=== PATIENT | male | born 1965 | race Caucasian/White ===

== ENCOUNTER 2021-03-25 12:31 | Outpatient (CLI) | payer OTHER, SELFPAY ==
--- NOTE | ~2021-03-25 | XR_ITS ---
EXAMINATION: XR knee RT min 4V DATE: 03/25/2021 12:53 INDICATION: Medial knee pain TECHNIQUE: Four views of the right knee were obtained. COMPARISON: 03/02/2012 FINDINGS: Alignment is normal. No fracture or osteochondral lesion. There is tricompartmental osteoar thritis, moderate to severe in the medial compartment. A small joint effusion is present. There is ca lcified atherosclerosis IMPRESSION: 1. No acute osseous abnormality. Reviewed, dictated and finalized at location [facility]
== END 2021-03-25 12:32 | disposition home or self-care (01) ==
PROVIDERS: PCP Family Medicine; Visit Provider Family Medicine
DX: M25.569 Pain in unspecified knee (principal)
CPT/HCPCS: 73564

== ENCOUNTER 2022-07-03 00:55 | Day surgery (SDC) | payer OTHER, SELFPAY ==
[2022-06-25 15:32] VITALS: BMI 34.7
--- NOTE | 2022-06-25 15:37 | PC.NURSE ---
Report to the Outpatient Waiting Room, entrance under the green pavilion located off [facility], at time 1130 on date 07/03/22. Planned Procedure Time: 1330. Time changes happen often and if your time is changed the preop area will call you the afternoon before. - You and your visitor will be asked to self-screen and do not enter if you have any COVID symptoms. - A mask is optional within the hospital at this time. Patients may have clear liquids (water, carbonated beverages, clear teas, apple juice) until 3 hours prior to surgery with a maximum of 20 ounces. - No food from midnight until time of surgery Take the following medications with a SIP of water the morning of surgery: TYLENOL IF NEEDED DO NOT STOP ANY OF YOUR OTHER PRESCRIPTION MEDICATIONS PRIOR TO SURGERY?EXCEPT THE FOLLOWING Medications to discontinue per physician: N/A Date to take last dose: N/A Please no make-up, nail korean, hairspray, perfume, deodorant, or body powder the day of surgery. No jewelry (including any body piercings) or valuables the day of surgery, leave them at home. Please take a shower or bath the night before, or the morning of, surgery with an antibacterial soap. Wear comfortable, loose fitting clothing. - Jewelry must be removed prior to entering the operating room. Rings and piercings that are not removed may be cut off. - The hospital will not accept responsibility for valuables. - Please leave all valuables, including medications, at home the day of surgery. If you are going home after surgery, a licensed certified driver examiner must drive you home. - NO public transportation without another adult if you receive anesthesia. - We recommend that an adult stay with you for 24 hours following discharge. - We also recommend that you do not drive, make important decision, drink alcoholic beverages, or take any drugs that were not prescribed by your health care provider for at least 24 hours after your discharge time. Follow any additional instructions given to you from your surgeon. If you or anyone in your household have experienced Covid symptoms in the past week, please notify your surgeon or the nurse liaison at the phone number below for possible testing. Telephone instructions given to PT - KWADWO SIERRA and asked if any additional questions and then verbalized understanding. Patient advised to call surgeon office or pre surgery nurse liaison [phone] if any additional questions.
[2022-07-03] VITALS (8 sets, daily range): BP systolic 106–157; BP diastolic 59–101; PULSE 57–72; RESP 15–20; TEMP 36.6–37; O2SAT 98–100
--- NOTE | 2022-07-03 12:22 | WPDHPUPDATE1 ---
History and Physical Update Update Date/Time: 07/03/22 12:22 History and Physical has been reviewed, including an updated exam of the patient. There are NO changes in the patient's condition. Risks, benefits, and alternatives have been discussed and questions answered. Patient agrees to proceed with procedure.
[2022-07-03] MEDS: LACTATED RINGERS 1,000 ML 30 ML IV CONT (12:30)
--- NOTE | 2022-07-03 13:37 | WPDANESEPPF ---
Anes - Initial Pre Proc Eval Procedure: Operation Date: 07/03/22 13:30 Proposed Procedures p Excision Right Posterior Neck Mass - Hakeem Sebastian DO Date/Time: 07/03/22 13:37 Surgeon: Hakeem Sebastian DO Pre Op Diagnosis: 7 cm Posterior Neck Mass Patient Data Age: 57 Gender: M Height: 1.63 m Weight: 89.3 kg Last Vital Signs Temp 36.6 C 07/03/22 12:44 Pulse 64 07/03/22 12:44 Resp 16 07/03/22 12:44 BP 155/86 H 07/03/22 12:44 Pulse Ox 99 07/03/22 12:44 O2 Del Method Room Air 07/03/22 12:44 Allergies Allergy/AdvReac Type Severity Reaction Status Date / Time No Known Allergies Allergy Unknown Verified 07/03/22 12:00 Home Medications Medication Instructions Recorded Confirmed Type acetaminophen 500 mg tablet 500 mg PO Q6H 03/25/21 07/03/22 History tadalafil 5 mg tablet 5 mg PO DAILY #30 tabs 05/10/22 06/25/22 Rx loratadine 10 mg tablet (Claritin) 10 mg PO DAILY 06/05/22 07/03/22 History celecoxib 200 mg capsule (Celebrex) 200 mg PO BID arthritis #60 caps 06/17/22 07/03/22 Rx Patient hx anesthesia problems: none Family hx anesthesia problems: none Results Review: All pre-operative results and documents have been reviewed as part of the pre-operative evaluation. [facility] Past Medical History Medical History (Updated 07/03/22 @ 13:37 by Mason Hay MD) BMI 32.0-32.9,adult BMI 33.0-33.9,adult BMI 34.0-34.9,adult BMI greater than 30 Elevated glucose Hematuria Inflamed skin tag Lipoma of neck Obesity DYLAN on CPAP Screening for lipid disorders Screening for prostate cancer Urinary hesitancy Surgical History Surgical History Hx of tonsillectomy Social History Social History Smoking status: Never smoker Alcohol intake: never Substance use: never Substance use type: does not use Living arrangements: with family Occupation/Education: occupation 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 Informed Consent: The patient's anesthetic plan and its attendant risks and benefits were discussed with the patient/family/POA. Questions were solicited and answers provided to the satisfaction of the patient/family/POA.
[2022-07-03] MEDS: ceFAZolin 2 GM/D5W 50 ML 2 GM/50 ML BAG IVPB (14:27)
[2022-07-03] MEDS: LIDO 1%/EPINEPHRINE 1:100,000 20 ML VIAL INFILTRATE (14:58)
[2022-07-03] MEDS: BACITRACIN OINTMENT 15 GM TUBE 1 APPLIC TOPICAL (15:06)
--- NOTE | 2022-07-03 15:26 | P.OP_ITS ---
Procedure Note - Detailed Date of Procedure 07/03/22 Pre-op Diagnosis 7 cm Posterior Neck Mass Post-op Diagnosis Other (7 cm intramuscular right posterior neck mass) Procedure Performed 1. Excision 7 cm intramuscular right posterior neck mass 2. Layered closure Surgeon Hakeem Sebastian, DO Anesthesia General and Local (1% lidocaine with epinephrine) Indications This is a 57-year-old man who presented with a mass his right posterior neck. He had noticed this for couple years and it had been gradually enlarging. He was found to have a firm subcutaneous palpable mass on exam. Discussions were made with the patient about treatment options and decision was made to proceed with excision of 7 cm posterior neck mass. Findings The 7 cm posterior neck mass was excised. This appeared to be an intramuscular mass that had a gelatinous appearance. This might be a nerve sheath tumor or neuroma. The mass was completely excised and sent to the lab for pathology. The wound was then closed in layers with 2-0 Vicryl simple interrupted layers in the fascia overlying the muscle, followed by 3-0 nylon simple interrupted sutures in skin. Description of Procedure Procedure as well as risks, benefits, and alternatives were discussed with the patient. Written consent was obtained and placed in chart prior to procedure. Patient was brought back to surgical suite. He was placed supine on operating table. Time-out was done to confirm patient and procedure. He was then intubated by the anesthesia department. He was then repositioned into left lateral decubitus position. His right posterior neck region was prepped and draped in sterile fashion using chlorhexidine prep. 1% lidocaine with epinephrine was infiltrated locally around the mass. A 7 cm transverse incision was then made directly over the mass using a 15 blade scalpel. Electrocautery was used for hemostasis and for dissection through the subcutaneous tissue. The fascia overlying the superior portion of the right trapezius muscle was incised using electrocautery. The mass was encountered just deep to the fascia was carefully dissected free from the surrounding muscle and deep tissue using blunt dissection. The mass was completely freed up and removed. Hemostasis was then achieved with electrocautery. The wound bed was then inspected and there were couple other small portions of the mass that were sized further with electroca utery. The origin of the mass appeared to be tracking towards the midline. No other deep masses were identified. Wound bed was then irrigated with sterile saline. Hemostasis appeared adequate no other masses were identified. The fascia overlying the mass was approximated using 2-0 Vicryl simple interrupted sutures. The skin was then approximated using 3-0 nylon simple interrupted sutures. Bacitracin ointment was then applied followed by 4 x 4 gauze and tape. The patient was then awakened from anesthesia, extubated, and transferred to recovery. Estimated Blood Loss 10 Pathology Yes (right posterior neck mass) Complications No immediate complications Condition Stable Disposition Same day [facility] Billing Surgery - Charge Forward: Surgery Billing
== END 2022-07-03 17:17 | disposition home or self-care (01) ==
PROVIDERS: PCP Family Medicine; Visit Provider Surgery
PROC: (CPT 21554; principal; 2022-07-03 13:30)
DX: D21.0 Benign neoplasm of connective and other soft tissue of head, face and neck (principal); G47.33 Obstructive sleep apnea (adult) (pediatric); E66.9 Obesity, unspecified; Z68.33 Body mass index [BMI] 33.0-33.9, adult
CPT/HCPCS: 21554; 88304; A9270; J0330; J0690; J1100; J2250; J2405; J2704; J3010; J7120

== ENCOUNTER 2022-07-09 15:30 | Outpatient (RCR) | payer OTHER, SELFPAY ==
--- NOTE | 2022-06-11 09:12 | PTOPEVAL1 ---
Assessment and note entered by Logan Lagos, PT Evaluation Information Assessment Status Evaluation Diagnosis R knee pain Subjective Information Patient reports his R knee pain started a couple years ago when he was jumping down from a boat off the trailer onto the ground and heard/felt a pop. It has gotten progressively worse. He is currently taking a prescription anti-inflammatory. 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 Assessment PT Clinical Summary Edouard is a 57 year old male coming into the clinic for R knee pain. He has decreased range of motion in the R knee compared to the L knee along with weakness and pain when testing the R knee quads. Painful palpation of the medial joint line and slight swelling. Positive, pivot shift test and Carolina's. Physical therapy will work on addressing deficits and using modalities for pain control. Plan of Care Interventions Electrical Stimulation,Gait Training,Hot Pack/Cold Pack,Manual Therapy,Neuro Re-education,Patient/ Caregiver Education,Therapeutic Activities, Therapeutic Exercise,Ultrasound Other Interventions taping, cupping, IASTM PT Services Indicated Yes Treatment Frequency and 1x/wk for 4 weeks Duration These treatments will address the objective and functional deficits as defined above. The patient will be advanced safely and appropriately in order for the patient to progress towards his/her prior level of function. Additional exercises will be introduced and as well as a comprehensive home exercise program upon discharge, if needed, ?to ensure carryover of functional gains achieved in the clinic. This treatment plan has been reviewed and agreement upon by the patient.
--- NOTE | 2022-07-09 16:16 | PTOPDC ---
Assessment and note entered by Logan Lagos, PT Evaluation Information Assessment Status Discharge Diagnosis Pain in R knee Subjective Information Patient reports he has been doing his exercises as he can and feels some more movement in the knee, but still has severe pain around the knee especially with working going up and down ladders. Reported Pain Level Pain Score 7: Self Report Additional Pain Score Comments clicking felt and heard in knee throughout testing . Assessment PT Clinical Summary Edouard is a 57 year old male coming into the clinic with R knee pain. He was evaluated on 06/08/22 and attended 5 sessions. He has met his strength and range of motion goals, but no change with functional and pain goals. Recommend imaging done at this time and potential orthopedic referral. Discharged from skilled physical therapy at this time. Plan of Care PT Services Indicated No
== END 2022-07-10 12:15 | disposition home or self-care (01) ==
LOC: ANHPT 15:30
PROVIDERS: PCP Family Medicine; Visit Provider Family Medicine
DX: M25.561 Pain in right knee (principal); S89.90XD Unspecified injury of unspecified lower leg, subsequent encounter
CPT/HCPCS: 97014; 97110; 97161; 97530; G0283

== ENCOUNTER 2022-07-28 08:44 | Outpatient (CLI) | payer OTHER, SELFPAY ==
--- NOTE | ~2022-07-28 | MR_ITS ---
MRI of the right knee Clinical history: Pain Technique: Coronal proton density and proton density-weighted images, sagittal proton-density and T2 fat-sat images, and axial proton-density fat-saturated images were acquired. Findings: Anterior and posterior cruciate ligaments are intact. Medial collateral ligament and the la teral collateral ligament complex are intact. Popliteus tendon is intact. There is complex, predominantly horizontal tearing predominantly involving the posterior horn and bod y of the medial meniscus. There is probable horizontal tear involving the body segment of the lateral meniscus. There is diffuse high-grade chondromalacia on both sides of the medial compartment, with focal area o f subchondral reactive marrow edema in the medial tibial plateau. There is mild chondromalacia of the lateral compartment. There is patchy moderate chondromalacia the femoral trochlea. There is mild cho ndral malacia the patellar apex. Moderate tricompartmental osteophyte formation is present. Extensor mechanism is intact. Small joint effusion is present. There is a 1 cm roughly ovoid intra-ar ticular loose body at the posterior aspect of the knee (axial image 11, coronal image 10). Impression: Complex, predominantly horizontal tearing of the posterior horn and body medial meniscus. Probable horizontal tear of the body segment of the lateral meniscus. Advanced degenerative change of the medial compartment, and moderate degenerative change of the late ral and patellofemoral compartments, as detailed above. Small joint effusion with 1 cm posterior intra-articular loose body. Reviewed, dictated and finalized at [facility]. Impression: Complex, predominantly horizontal tearing of the posterior horn and body medial meniscus. Probable horizontal tear of the body segment of the lateral meniscus. Advanced degenerative change of the medial compartment, and moderate degenerat ross change of the lateral and patellofemoral compartments, as detailed above. Small joint effusion with 1 cm posterior intra-articular loose body.
== END 2022-07-28 08:45 | disposition home or self-care (01) ==
PROVIDERS: PCP Family Medicine; Visit Provider Family Medicine
DX: S83.231A Complex tear of medial meniscus, current injury, right knee, initial encounter (principal); X58.XXXA Exposure to other specified factors, initial encounter; M25.461 Effusion, right knee; M17.11 Unilateral primary osteoarthritis, right knee
CPT/HCPCS: 73721

== ENCOUNTER 2022-09-24 13:27 | Emergency (ER) | payer OTHER, SELFPAY ==
--- NOTE | ~2022-09-24 | XR_ITS ---
EXAMINATION: XR knee RT min 4V DATE: 09/24/2022 14:33 INDICATION: Right knee pain. TECHNIQUE: 6 views of right knee were obtained. COMPARISON: Right knee radiograph 09/03/2022 FINDINGS: Bone alignment is normal. No fracture. There is severe osteoarthritis of medial compartment , mild osteoarthritis of lateral compartment, and moderate osteoarthritis of patellofemoral compartme nt. No knee joint effusion. IMPRESSION: 1. Severe right knee osteoarthritis. Reviewed, dictated and finalized at location E.
[2022-09-24 13:30] VITALS: BP 160/81; PULSE 73; RESP 16; TEMP 36.4; O2SAT 96
[2022-09-24 13:35] VITALS: BP 159/99; PULSE 71; RESP 18; O2SAT 97
--- NOTE | 2022-09-24 15:06 | ED.LOWEXIN ---
HPI - Extremity Injury (Lower) General Chief Complaint: Extremity Injury, Lower Stated Complaint: R KNEE PAIN Time Seen by Provider: 09/24/22 14:09 Source: patient Mode of arrival: wheelchair Limitations: no limitations History of Present Illness HPI Narrative: This is a 57 year old male that presents to the ER for acute on chronic right knee pain. Reports this morning he was standing from kneeling and felt a pop in the right knee. Since he has had worsening right knee pain with inability to bear weight. Reports decreased ROM due to pain. Denies numbness. Related Data Home Medications Medication Instructions Recorded Confirmed acetaminophen 500 mg tablet 500 mg PO Q6H 03/25/21 09/03/22 loratadine 10 mg tablet (Claritin) 10 mg PO DAILY 06/05/22 09/03/22 Allergies Allergy/AdvReac Type Severity Reaction Status Date / Time No Known Allergies Allergy Unknown Verified 09/24/22 13:40 Review of Systems Review of Systems: CONSTITUTIONAL: Denies fever SKIN: Denies rash MUSCULOSKELETAL: Reports joint pain, and myalgia. NEUROLOGIC: Denies numbness All systems reviewed & are unremarkable except as noted in HPI and below PMFSH Past Medical History Medical History BMI 32.0-32.9,adult BMI 33.0-33.9,adult BMI 34.0-34.9,adult BMI greater than 30 Elevated glucose Hematuria Inflamed skin tag Lipoma of neck Obesity DYLAN on CPAP Screening for lipid disorders Screening for prostate cancer Urinary hesitancy Surgical History Surgical History H/O excision of mass 07/03/22 Excision 7 cm intramuscular right posterior neck mass. 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 HEAD: Normocephalic, atraumatic. EYES: EOMI. EXTREMITIES: Mildly decreased active ROM due to pain. No edema, erythema or obvious deformity. Normal DP pulse. Normal sensation SKIN: Warm, dry, no rash. NEURO: No focal deficits. Alert and oriented x3. PSYCH: Normal mood and affect Course Course Emergency Course: Patient and family updated on workup and agree with plan of care Vital Signs Vital signs: Vital Signs Temperature 97.6 F 09/24/22 13:30 Pulse Rate 73 09/24/22 13:30 Respiratory Rate 16 09/24/22 13:30 Blood Pressure 160/81 H 09/24/22 13:30 Pulse Oximetry 96 09/24/22 13:30 Oxygen Delivery Room Air 09/24/22 13:30 Temperature 97.6 F 09/24/22 13:30 Pulse Rate 71 09/24/22 13:35 Respiratory Rate 18 09/24/22 13:35 Blood Pressure 159/99 H 09/24/22 13:35 Pulse Oximetry 97 09/24/22 13:35 Oxygen Delivery Room Air 09/24/22 13:35 MDM - Extremity Injury (Lower) MDM Narrative Medical decision making narrative: Patient presents to the emergency department for acute on chronic right knee pain. Reports standing from a kneeling position and feeling a pop in the knee. He is neurovascularly intact. No erythema, edema or warmth of the knee. Right knee x-ray shows osteoarthritis. No joint effusion noted. Patient and family updated on work-up. Patient reports he follows up with Dr. Kendrick for this. Will be placed in Lino wrap for comfort and given cr
[2022-09-24] MEDS: KETOROLAC 30 MG/ML VIAL (*BKC) IM (15:10)
--- NOTE | 2022-09-24 15:31 | PC.NURSE ---
pt requested a disk of xray to provide to the ortho. xray will be sending one up for the pt to take with them.
== END 2022-09-24 15:55 | disposition home or self-care (01) ==
PROVIDERS: Emergency Provider Physician Assistant; PCP Family Medicine
DX: M25.561 Pain in right knee (principal)
CPT/HCPCS: 73564; 96372; 99283; J1885

== ENCOUNTER 2023-01-28 07:56 | Outpatient (CLI) | payer OTHER, SELFPAY ==
--- NOTE | 2023-01-28 08:31 | ECG_ITS ---
Measurements Intervals [place] Rate: 61 P: 36 TN: 130 QRS: -43 QRSD: 103 T: -8 QT: 431 QTc: 437 Interpretive Statements SINUS RHYTHM LEFT AXIS DEVIATION POOR R WAVE PROGRESSION, ANTERIOR LEADS BORDERLINE T WAVE ABNORMALITY- INFERIOR LEADS BASELINE ARTIFACT- I, II, V4-V6 BORDERLINE ECG NO PREVIOUS ECG AVAILABLE FOR COMPARISON Electronically Signed On 01-28-2023 9:06:37 SKULL GRINDER by Wilian Gomez D.O.
[2023-01-28 09:13] LABS: Basophils Absolute Auto 0.1 K/mm3 (0.0-0.1); Basophils Percent Auto 0.7 % (0.2-1.2); Hemoglobin 15.3 g/dL (14.0-18.0); Immature Granulocyte Absolute 0.03 K/mm3 (0.00-0.031); Immature Granulocyte Percent A 0.4 % (0-0.5); Lymphocytes Absolute Auto 1.99 K/mm3 (0.9-3.2); Lymphocytes Percent Auto 26.6 % (18.3-44.2); Mean Corpuscular Hemoglobin 30.1 pg (26-34); Mean Corpuscular Volume 88.4 fl (80-100); Mean Platelet Volume 9.3 fl (7.4-10.4); Monocytes Absolute Auto 0.6 K/mm3 (0.1-0.6); Monocytes Percent Auto 8.5 % (2.6-8.5); Neutrophils Absolute Auto 4.8 K/mm3 (1.3-6.7); Neutrophils Percent Auto 63.8 % (45.5-73.1); Platelet Count Result 222 k/mm3 (150-375); Red Blood Count 5.09 M/mm3 (4.6-6.20); Red Cell Distribution Width 12.3 % (11.5-14.5); White Blood Count 7.5 K/mm3 (4.5-10.0)
[2023-01-28 09:18] LABS: Albumin Level 4.6 g/dL (3.5-5.1); Estimated Glomerular Filt Rate > 60; Glucose 126 mg/dL (65-110)
[2023-01-28 09:21] LABS: Urine Cotinine NEGATIVE
== END 2023-01-28 07:57 | disposition home or self-care (01) ==
PROVIDERS: PCP Family Medicine; Visit Provider Orthopaedic Surgery
DX: M17.11 Unilateral primary osteoarthritis, right knee (principal); Z01.818 Encounter for other preprocedural examination; R94.31 Abnormal electrocardiogram [ECG] [EKG]
CPT/HCPCS: 80307; 82040; 82565; 82947; 85025; 86850; 86900; 86901; 87081; 93005

== ENCOUNTER 2023-01-28 13:50 | Outpatient (CLI) | payer OTHER, SELFPAY ==
[2023-01-28 15:26] LABS: Hemoglobin A1C 5.7 % (<5.7)
== END 2023-01-28 13:51 | disposition home or self-care (01) ==
LOC: ANHLAB 13:51
PROVIDERS: PCP Family Medicine; Visit Provider Orthopaedic Surgery
DX: R03.0 Elevated blood-pressure reading, without diagnosis of hypertension (principal); R73.03 Prediabetes
CPT/HCPCS: 36415; 83036

== ENCOUNTER 2023-02-08 01:06 | Day surgery (SDC) | payer OTHER, SELFPAY ==
--- NOTE | 2023-01-28 07:49 | PC.NURSE ---
PRE-OP INSTRUCTIONS, PLEASE READ CAREFULLY Report to the Outpatient Waiting Room, entrance under the green pavilion located off [facility], at time _0600_ on date _02/08/23_. Planned Procedure Time: _0730_. PACK A SMALL OVERNIGHT BAG AND LEAVE IN THE CAR ALONG WITH YOUR WALKER Time changes happen often and if your time is changed the preop area will call you the afternoon before. - You and your visitor will be asked to self-screen and do not enter if you have any COVID symptoms. - A mask is optional within the hospital at this time. -VISITING HOURS 8AM-8PM Patients may have clear liquids (water, carbonated beverages, clear teas, apple juice) until 3 hours prior to surgery (0430 AM) with a maximum of 20 ounces. - No food from midnight until time of surgery Take the following medications with a SIP of water the morning of surgery: _TYLENOL IN NEEDED_ DO NOT STOP ANY OF YOUR OTHER PRESCRIPTION MEDICATIONS PRIOR TO SURGERY ?EXCEPT THE FOLLOWING Medications to discontinue per physician ____NONE , Date to take last dose Please no make-up, nail azerbaijani, hairspray, perfume, deodorant, or body powder the day of surgery. No jewelry (including any body piercings) or valuables the day of surgery, leave them at home. Please take a shower or bath the night before, or the morning of, surgery with an antibacterial soap. Wear comfortable, loose fitting clothing. - Jewelry must be removed prior to entering the operating room. Rings and piercings that are not removed may be cut off. - The hospital will not accept responsibility for valuables. - Please leave all valuables, including medications, at home the day of surgery. If you are going home after surgery, a licensed stage driver must drive you home. - NO public transportation without another adult if you receive anesthesia. - We recommend that an adult stay with you for 24 hours following discharge. - We also recommend that you do not drive, make important decision, drink alcoholic beverages, or take any drugs that were not prescribed by your health care provider for at least 24 hours after your discharge time. Follow any additional instructions given to you from your surgeon. If you or anyone in your household have experienced Covid symptoms in the past week, please notify your surgeon or the nurse liaison at the phone number below for possible testing. Instructions given to _PATIENT_and asked if any additional questions and then verbalized understanding. Patient advised to call surgeon office or pre surgery nurse liaison [phone] if any additional questions.
[2023-01-28 08:15] VITALS: BP 156/76; PULSE 60; RESP 20; TEMP 36.7; O2SAT 100; BMI 32.9
[2023-02-08] VITALS (12 sets, daily range): BP systolic 129–145; BP diastolic 70–82; PULSE 70–90; RESP 12–18; TEMP 35.7–37; O2SAT 92–99
--- NOTE | ~2023-02-08 | XR_ITS ---
EXAMINATION: [id number] DATE: 02/08/2023 10:13 SECOND VP HR ASSESSMENT INDICATION: Right knee arthroplasty TECHNIQUE: 2 views right knee FINDINGS: There is a right total knee arthroplasty in expected position. Subcutaneous gas with fluid and air in the joint are consistent with recent surgery. No evidence of periprosthetic fracture. IMPRESSION: 1. Recent right total knee arthroplasty. Reviewed, dictated and finalized at location B. ND VP HR ASSESSMENT
[2023-02-08] MEDS: LACTATED RINGERS 1,000 ML 30 ML IV CONT ×2 (06:40→09:46)
[2023-02-08] MEDS: ACETAMINOPHEN 500 MG TABLET 1000 MG PO (06:42)
--- NOTE | 2023-02-08 07:06 | WPDANESEPPF ---
Anes - Initial Pre Proc Eval Procedure: Operation Date: 02/08/23 07:30 Proposed Procedures p Right Total Knee Arthroplasty - Ray Kendrick MD Date/Time: 02/08/23 07:06 Surgeon: Ray Kendrick MD Pre Op Diagnosis: OA right knee Patient Data Age: 57 Gender: M Height: 1.63 m Weight: 85.6 kg Last Vital Signs Temp 36.3 C L 02/08/23 06:12 Pulse 72 02/08/23 06:12 Resp 18 02/08/23 06:12 BP 138/80 02/08/23 06:12 Pulse Ox 99 02/08/23 06:12 O2 Del Method Room Air 02/08/23 06:12 Allergies Allergy/AdvReac Type Severity Reaction Status Date / Time No Known Allergies Allergy Unknown Verified 02/08/23 06:13 Home Medications Medication Instructions Recorded Confirmed Type loratadine 10 mg tablet (Claritin) 10 mg PO DAILY 06/05/22 02/08/23 History celecoxib 200 mg capsule (Celebrex) 200 mg PO BID arthritis #60 caps 12/30/22 02/08/23 Rx rivaroxaban 10 mg tablet (Xarelto) 10 mg PO DAILY PE Prophylaxis s/p 01/26/23 02/08/23 Rx surgery 14 days #14 tabs acetaminophen 325 mg tablet 650 mg PO TID PRN Pain 01/28/23 02/08/23 History (Tylenol) tadalafil 5 mg tablet 5 mg PO DAILY PRN Erectile 01/28/23 02/08/23 History Dysfunction Patient hx anesthesia problems: none Family hx anesthesia problems: none Results Review: All pre-operative results and documents have been reviewed as part of the pre-operative evaluation. [facility] Past Medical History Medical History (Updated 01/26/23 @ 13:05 by OBEY Stubbs) BMI 32.0-32.9,adult BMI 33.0-33.9,adult BMI 34.0-34.9,adult BMI greater than 30 Elevated glucose Hematuria Inflamed skin tag Lipoma of neck Obesity DYLAN on CPAP Screening for lipid disorders Screening for prostate cancer Urinary hesitancy Surgical History Surgical History H/O excision of mass 07/03/22 Excision 7 cm intramuscular right posterior neck mass. Layered closure Hx of tonsillectomy Social History Social History Smoking status: Never smoker Second hand tobacco smoke exposure: No Additional smoking assessment comments: PT DENIES ALL FORMS OF TOBACCO USE Alcohol intake: never Substance use: never Substance use type: does not use Current Housing: Decline to Answer Concerned About Future Housing: Decline to Answer Difficulty Paying Gas/Electric Bills: Decline to Answer Difficulty Paying for Meds: Decline to Answer Currently Unemployed: Decline to Answer Education: Decline to Answer Difficulty w/ Childcare or Family Care: Decline to Answer Living arrangements: alone Occupation/Education: occupation Additional occupation/education comments: [employer] Spiritual care concerns: No Anes - Eval Final PreProcedure Day of Procedure 02/08/23 07:06 Patient weight: obese Heart: regular rate and rhythm Lungs: clear to auscultation Airway: Mallampati scale class II Neurological: alert and oriented Last oral intake: >/= 8 hours ASA classification: III Emergent: no Anesthetic plan: proceed Anesthesia type and monitoring: general LMA and standard monitoring Results Review: All pre-operative results and documents have been reviewed as part of the pre-operative evaluation. Informed Consent: The patient's anesthetic plan and its attendant risks and benefits were discussed with the patient/family/POA. Questions were solicited and answers provided to the satisfaction of the patient/family/POA.
--- NOTE | 2023-02-08 07:08 | WPDHPUPDATE1 ---
History and Physical Update Update Date/Time: 02/08/23 07:08 History and Physical has been reviewed, including an updated exam of the patient. There are NO changes in the patient's condition. Risks, benefits, and alternatives have been discussed and questions answered. Patient agrees to proceed with procedure.
[2023-02-08] MEDS: TRANEXAMIC ACID 1,000MG/ISO100 1,000 MG/100 ML BAG 200 MG IVPB (07:10)
--- NOTE | 2023-02-08 07:18 | WPDANESPNB ---
Anes - Peripheral Nerve Block Date/Time: 02/08/23 07:18 I have discussed with the patient/family/POA the placement of a peripheral nerve block for post-operative pain management, including associated risks, benefits, complications, and side effects. Alternative methods of post-operative analgesia were detailed. Questions were solicited and answers provided to the satisfaction of the patient/family/POA. Time-Out: A pre-procedural Time-Out was completed immediately before starting the procedure and confirmed: Patient Identification, Site, Procedure, Patient Position and the Availability of Requisite Equipment. Clinical Indications: Acute post-operative pain management requested by the operative surgeon. Nerve Block Insertion Note Anes-nerve block: adductor canal right Patient position: supine Skin prep: chlorhexidine Needle: 22 gauge, stimulating, insulated echogenic needle. Needle length: 80 mm Technique: ultrasound Injectate: bupivacaine 0.5% with epi 5 mcg/ml (30cc - no epi) Observations: tolerated well Complications: none Procedure start time:: 718 Procedure end time:: 722
[2023-02-08] MEDS: ceFAZolin 2 GM/D5W 50 ML 2 GM/50 ML BAG IVPB ×2 (07:28→15:16)
[2023-02-08] MEDS: GENTAMICIN BONE CEMENT REFOBACIN 1 EACH TOPICAL (08:23)
--- NOTE | 2023-02-08 09:44 | W.PM.PROC2 ---
Procedure Note - Detailed Date of Procedure 02/08/23 Pre-op Diagnosis OA right knee Post-op Diagnosis Same Procedure Performed Right total knee replacement Surgeon Ray Kendrick MD [employer] [facility] Anesthesia General and Regional Description of Procedure The patient was identified and proper site identified. In the preop holding area the anesthesia team performed a right-sided sub sartorial block after which the patient was taken to the operating room and transferred to the OR table positioning supine taking care to pad the torso and extremities. After general anesthetic induction and intubation a nonsterile tourniquet was placed high on the right thigh. The right lower extremity was prepped and draped in the usual sterile fashion. The extremity was exsanguinated and with the knee flexed tourniquet was inflated to 300 mmHg remaining up for approximately 61 minutes. An anterior midline incision was made and a modified medial parapatellar approach was used. Infra and suprapatellar fat pads were excised. Patella was resected leaving 15 mm thickness and prepared for the size 32 round three peg component. Using the intramedullary guide the distal femur was cut in the proper orientation for the size 6 femoral component. Using the extramedullary guide the tibia was cut perpendicular to the long axis protecting collateral ligaments and popliteal structures. It was sized to a 6M. Flexion and extension gaps were balanced. Trial reduction was undertaken and the weight-bearing line was noted to passed through the center of the joint. Proximal tibia was drilled and punched in the proper orientation for the real component. Trial components were removed. The bone surfaces were washed with pulsatile lavage and dried. The real components were cemented simultaneously. The knee was held in extension and the patella held clamped until the cement had cured. Excess cement was removed from the joint. After trialing it was determined that the 14 mm insert gave full range of motion from 0-120 degrees of flexion and the patella tracked in the femoral groove with no lift-off. After final lavage the joint the real size 14 insert was secured. A Betadine and saline wash was placed into the wound and allowed to sit for approximately 3 minutes and then evacuated. Periarticular tissues were infiltrated with 60 cc of the arthroplasty solution. Surgicel powder was applied into the wound during the closure. The extensor mechanism was repaired with #2 Vicryl suture and 0 looped PDS suture. Subcu was reapproximated with 2. Vicryl and 0 Stratafix was used with tissue adhesive for the skin. A sterile dressing was applied. He tolerated the procedure well, was awakened and extubated, transferred to the bed and was taken to recovery area in stable condition. There were no known intraoperative complications. Perioperative antibiotics were administered. Estimated Blood Loss 200 Tourniquet Time 61 Drains No Packing No Pathology None sent Complications No immediate complications Condition Stable Disposition PACU [facility] Billing Surgery - Charge Forward: Surgery Billing ([id number])
[2023-02-08] MEDS: ONDANSETRON INJ 4 MG/2 ML VIAL IV PUSH ×3 (10:10→15:16)
[2023-02-08] MEDS: fentaNYL CITRATE INJ (*CRX) 100 MCG/2 ML VIAL 25 MCG IV PUSH (10:12)
--- NOTE | 2023-02-08 10:50 | ADMGEN ---
This patient, Santy Ramirez, was admitted to [address] [place] [address] Room 300-01. Patient/family oriented to hospital policies and general routines including ID bracelet, bed and alarms, visiting hours, pain management, procedures, bathroom and other care routines, personal items, smoking policy, room service/diet, and visiting hours. Information on how to activate the Rapid Response Team has been discussed. Patient/Family are encouraged to report perceived risks to care and to ask questions if they do not understand what they are told or what they should do.
[2023-02-08] MEDS: KETOROLAC 15 MG/ML VIAL (*BKC) IV PUSH ×2 (10:55→17:47)
[2023-02-08] MEDS: SODIUM CHLORIDE 0.9% IV 1,000 ML 125 ML IV CONT (10:55)
[2023-02-08] MEDS: oxyCODONE/ACETAMINOPHEN (*CRX) 5-325 MG TABLET 1 TABLET PO ×3 (12:56→21:13)
--- NOTE | 2023-02-08 13:12 | WPDCN ---
Assessment and Plan Assessment and plan (1) Arthritis of right knee: Code(s): M17.11 - Unilateral primary osteoarthritis, right knee Status: Acute Assessment and Plan: Postoperative day 0 status post right total knee arthroplasty. Wound care, pain control, and DVT prophylaxis deferred to Dr. Kendrick. Agree with PT/OT. Check baseline labs in a.m. (2) Obstructive sleep apnea on CPAP: Code(s): G47.33 - Obstructive sleep apnea (adult) (pediatric) Status: Acute Assessment and Plan: CPAP will be provided for the patient to use while hospitalized. Plan Thank you for allowing us to participate in this patient's care. Please do not hesitate to contact us with any questions. HPI Data of Consult Date/Time: 02/08/23 13:10 Requesting Physician: Ray Kendrick MD Consult Narrative Reason for consult: Medical management. Narrative: This is a very pleasant 57-year-old male with arthritis and obstructive sleep apnea on CPAP whom the hospitalist service has been consulted for help managing his medical conditions postoperatively. He reports longstanding pain in his right knee which has not been amenable to conservative outpatient treatment and he elected replacement today. Surgery was performed under general and regional anesthesia with no immediate complications documented estimated blood loss of 200 mL. Postoperatively he has done quite well and has minimal discomfort, mainly up with activity. He has been getting up to the bathroom and ambulated around the room and down the hallway with therapy without issue. He has a nausea earlier but no vomiting. He has noticed a ?knot? on the front of the right knee which was not there before surgery and he is a bit concerned. It is not painful. He denies fever, chills, sweats, vomiting, chest pain, and shortness of breath. He also denies paresthesias, skin color, and temperature changes distal to the surgical site. No personal or family history of venous thromboembolism. On discharge he will be staying with his mom for a few days before returning home. Son and daughter live nearby and will be helping out as well. Review of Systems Review of Systems: Twelve systems were reviewed and are negative except for as per HPI. [facility] Past Medical History Medical History (Updated 02/08/23 @ 21:24 by Caroline Reagan PA-C) Arthritis Obstructive sleep apnea on CPAP Surgical History Surgical History History of excision of mass Benign intramuscular myoxma right posterior neck. History of open reduction and internal fixation (ORIF) procedure Repair left leg fracture. History of removal of cyst Excision cyst from groin. History of right knee joint replacement (02/08/23) History of tonsillectomy (11/2009) History of uvulopalatopharyngoplasty (11/2009) Family History Family History Other Family history non-contributory Social History Social History Social History: Surrogate medical decision maker: Zina Hagen, mother. Code status: Full code. 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
[2023-02-08] MEDS: SENNA/DOCUSATE SODIUM TABLET 2 TAB PO (17:47)
[2023-02-08] MEDS: FAMOTIDINE 20 MG TABLET PO (21:12)
[2023-02-08] MEDS: WATER FOR IRRIGATION, STERILE 1,000 ML BOTTLE 1000 ML (23:12)
[2023-02-09] MEDS: ceFAZolin 2 GM/D5W 50 ML 2 GM/50 ML BAG IVPB ×2 (00:10→08:10)
[2023-02-09] MEDS: KETOROLAC 15 MG/ML VIAL (*BKC) IV PUSH ×3 (00:10→11:21)
[2023-02-09 00:24] VITALS: BP 126/74; PULSE 82; RESP 18; TEMP 37.1; O2SAT 97
[2023-02-09] MEDS: oxyCODONE/ACETAMINOPHEN (*CRX) 5-325 MG TABLET 1 TABLET PO ×3 (01:39→08:09)
[2023-02-09 04:59] VITALS: BP 135/65; PULSE 88; RESP 16; TEMP 36.4; O2SAT 99
[2023-02-09 06:48] LABS: Basophils Percent Auto 0.1 % (0.2-1.2); Hematocrit 37.9 % (42.0-52.0); Hemoglobin 12.5 g/dL (14.0-18.0); Immature Granulocyte Absolute 0.05 K/mm3 (0.00-0.031); Immature Granulocyte Percent A 0.3 % (0-0.5); Lymphocytes Absolute Auto 2.33 K/mm3 (0.9-3.2); Lymphocytes Percent Auto 16.2 % (18.3-44.2); Mean Corpuscular Hemoglobin 29.9 pg (26-34); Mean Corpuscular Volume 90.7 fl (80-100); Mean Platelet Volume 9.5 fl (7.4-10.4); Monocytes Absolute Auto 1.6 K/mm3 (0.1-0.6); Monocytes Percent Auto 11.4 % (2.6-8.5); Neutrophils Absolute Auto 10.3 K/mm3 (1.3-6.7); Platelet Count Result 201 k/mm3 (150-375); Red Blood Count 4.18 M/mm3 (4.6-6.20); Red Cell Distribution Width 12.8 % (11.5-14.5); White Blood Count 14.4 K/mm3 (4.5-10.0)
[2023-02-09 07:11] LABS: Anion Gap 6 mmol/L (8-16); Blood Urea Nitrogen 24 mg/dL (9-20); Calcium 8.5 mg/dL (8.4-10.2); Carbon Dioxide 29 mmol/L (22-30); Chloride 102 mmol/L (98-107); Estimated CRCL calculation 77 ml/min; Estimated Glomerular Filt Rate > 60; Glucose 131 mg/dL (65-110); Magnesium 2.4 mg/dL (1.6-2.3); Potassium 4.3 mmol/L (3.4-5.0); Sodium 137 mmol/L (137-145)
--- NOTE | 2023-02-09 07:17 | PM.DS ---
DS: Admitting Diagnosis Discharge Date February 09, 2023 Admitting Diagnosis Severe osteoarthritis right knee DS: Discharge Diagnosis Discharge Diagnosis (1) History of right knee joint replacement: Onset Date: 02/08/23 Code(s): Z96.651 - Presence of right artificial knee joint Status: Resolved Plan Patient will be discharged home today. He has outpatient therapy starting in one week so he will work on his own for the balance of this week. Detailed instructions were reviewed with him and also being sent home with him. He is to call with any questions prior to follow-up. DS: Summary Hospital Course Hospital Course: Following the patient's total knee replacement surgery on February 08, 2023, he was admitted to the floor for observation, pain control and to initiate physical therapy. He did very well overnight is being discharged home on postop day one. Hospitalist Service saw in consultation. No additional recommendations. Status at Discharge Functional status at discharge: uses cane/walker Overall status at discharge: patient is not back to baseline Time Spent with Patient Time attestation: Total time spent providing and/or coordinating discharge services: Exam Const: General: cooperative, no acute distress and alert Nutritional Appearance: other Orientation/consciousness: patient oriented x3 Limitations: no limitations HENMT: Head: normal to inspection Resp: Effort & Inspection: normal respiratory effort and able to speak in complete sentences GI: Inspection: other Neuro: General: patient oriented x3 Cognition (Neuro): normal cognition Speech: normal speech Extrem: Other: Exam of right knee shows dry incision. Does have some swelling about the knee with minimal bruising. Calves are negative. Able to be brought to full extension with little difficulty. Grossly neurovascular status right lower extremity unremarkable. Psych: Appearance: grossly normal Mental Status: mental status grossly normal DS: Data Data Completed and Pending Labs on day of discharge: Labs from last 24 hours 02/09/23 05:57 WBC 14.4 H RBC 4.18 L Hgb 12.5 L Hct 37.9 L MCV 90.7 MCH 29.9 MCHC 33.0 RDW 12.8 Plt Count 201 MPV 9.5 Immature Gran % (Auto) 0.3 Neut % (Auto) 72.0 Lymph % (Auto) 16.2 L [place] % (Auto) 11.4 H Eos % (Auto) 0.0 Baso % (Auto) 0.1 L Lymph # (Auto) 2.33 [place] # (Auto) 1.6 H Eos # (Auto) 0.0 Baso # (Auto) 0.0 Abs Immat Gran (auto) 0.05 H Absolute Neuts (auto) 10.3 H Absolute Nucleated RBC 0.0 Nucleated RBC % 0.0 Sodium 137 Potassium 4.3 Chloride 102 Carbon Dioxide 29 Anion Gap 6 L BUN 24 H Creatinine 0.90 Estim Creat Clear Calc 77 Estimated GFR > 60 Glucose 131 H Calcium 8.5 Magnesium 2.4 H Discharge Plan Discharge Patient Disposition: Home, Self-Care Discharge Instructions: 3 times daily for 20 minutes each time, reclining in bed with ice packs over the incision and a pillow underneath the calf of the affected leg, not under the knee. Your wound is glued so it is okay to remove the dressing, get into the shower and get the wound wet in two days. Be sure to read through all the information that came from a my office and the hospital. Most of the answers you will need can be found that material. Call the office with any questions that you cannot find answers to, or concerns you may have. After the Xarelto is completed, start taking one coated 325 mg aspirin daily and do this for four more weeks. Please call [facility] at as soon as possible to arrange for/verify your follow-up appointment to be seen in 2 weeks. Also, call the office with any orthopedic/surgical related questions prior to follow-up. Be sure to get up and move around several times daily but do not overdo it. Take the arthritis formula Tylenol 650 mg tablet on an 8 hour schedule. A good 8 hour schedule is: 6:00 a.m., 2:00 p.m., 10:00 p
[2023-02-09] MEDS: SENNA/DOCUSATE SODIUM TABLET 2 TAB PO (08:09)
[2023-02-09] MEDS: polyethylene glycoL 3350 17 GM POWD.PACK PO (08:09)
[2023-02-09] MEDS: RIVAROXABAN 10 MG TABLET PO (08:09)
[2023-02-09] MEDS: LORATADINE 10 MG TABLET PO (08:10)
[2023-02-09] MEDS: FAMOTIDINE 20 MG TABLET PO (08:10)
--- NOTE | 2023-02-09 09:18 | WPDANESPN ---
Anes - Prog Note Post-Op Date/Time: 02/09/23 09:18 Cardiovascular status: normal Respiratory status: normal Airway patency: baseline Mental status: baseline Post-Op hydration status: normal Vital Signs: Last Vital Signs Temp 36.4 C L 02/09/23 04:59 Pulse 88 02/09/23 04:59 Resp 16 02/09/23 04:59 BP 135/65 02/09/23 04:59 Pulse Ox 99 02/09/23 04:59 O2 Del Method Room Air 02/08/23 20:00 O2 Flow Rate 2 02/08/23 11:07 Pain Score (VAS): 05/22 I/O: Intake & Output 02/08/23 02/09/23 02/09/23 23:59 07:59 15:59 Intake Total 1120 550 Balance 1120 550 Laboratory Tests 02/09/23 05:57 02/09/23 05:57 02/09/23 05:57 WBC 14.4 H RBC 4.18 L Hgb 12.5 L Hct 37.9 L MCV 90.7 MCH 29.9 MCHC 33.0 RDW 12.8 Plt Count 201 MPV 9.5 Immature Gran % (Auto) 0.3 Neut % (Auto) 72.0 Lymph % (Auto) 16.2 L [place] % (Auto) 11.4 H Eos % (Auto) 0.0 Baso % (Auto) 0.1 L Lymph # (Auto) 2.33 [place] # (Auto) 1.6 H Eos # (Auto) 0.0 Baso # (Auto) 0.0 Abs Immat Gran (auto) 0.05 H Absolute Neuts (auto) 10.3 H Absolute Nucleated RBC 0.0 Nucleated RBC % 0.0 Sodium 137 Potassium 4.3 Chloride 102 Carbon Dioxide 29 Anion Gap 6 L BUN 24 H Creatinine 0.90 Estim Creat Clear Calc 77 Estimated GFR > 60 Glucose 131 H Calcium 8.5 Magnesium 2.4 H Post-procedural complaints: none Patient Feedback: Patient satisfied with anesthetic care. Other Findings: Patient walking with PT
== END 2023-02-09 11:40 | disposition home or self-care (01) ==
LOC: ANHSURGERY 09:37 → ANH3MEDSUR 10:35
PROVIDERS: PCP Family Medicine; Visit Provider Orthopaedic Surgery
PROC: (CPT 27447; principal; 2023-02-08 07:30)
DX: M17.11 Unilateral primary osteoarthritis, right knee (principal); E78.5 Hyperlipidemia, unspecified; I10 Essential (primary) hypertension; F41.9 Anxiety disorder, unspecified; G47.33 Obstructive sleep apnea (adult) (pediatric); R39.11 Hesitancy of micturition; K52.9 Noninfective gastroenteritis and colitis, unspecified; K21.9 Gastro-esophageal reflux disease without esophagitis; G89.18 Other acute postprocedural pain; E66.9 Obesity, unspecified; Z68.32 Body mass index [BMI] 32.0-32.9, adult; Z79.01 Long term (current) use of anticoagulants; Z79.1 Long term (current) use of non-steroidal anti-inflammatories (NSAID); Z99.89 Dependence on other enabling machines and devices; Z86.018 Personal history of other benign neoplasm
CPT/HCPCS: 64447; 27447; 36415; 73560; 80048; 83735; 85025; 97110; 97116; 97161; 97165; 97530; 97535; A9270; C1713; J0171; J0690; J1100; J1170; J1885; J2250; J2270; J2405; J2704; J2795; J3010; J7030; J7120

== ENCOUNTER 2023-05-06 13:30 | Outpatient (RCR) | payer OTHER, SELFPAY ==
--- NOTE | 2023-02-17 16:21 | OPREHPOC ---
Outpatient Therapy Plan of Care This is a Multidisciplinary Plan of Care that may contain components documented by all disciplines (PT, OT, and ST.) PT Problem 1 PT Problem #1 Knowledge Deficit PT Goal 1 Goal 1* indep with HEP 2* correct use of assistive device with gait PT Problem 2 PT Problem #2 Pain PT Goal 1 Goal 1* pt report pain at worst of 5/10 PT Problem 3 PT Problem #3 Impaired Flexibility PT Goal 1 Goal R knee active ROM in sittin* extension 0; 2* flexion 105' PT Problem 4 PT Problem #4 Impaired Strength PT Goal 1 Goal 1* pt able to perform 20 reps of mat R LE exercises 2* sit/stand without use of UE x 3 reps from 18 seat 3* supine/sit transfer indep PT Problem 5 PT Problem #5 Impaired Functional Mobil PT Goal 1 Goal 1* 2 minute walking test distance of 300' with assistive device 2* up/down 8 steps with 1 hand railing, indep 3* pt report walking short distances in community
--- NOTE | 2023-02-17 16:21 | PTOPEVAL1 ---
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 He has increased pain trying to do exercises at home, but not able to lift his leg. He is sleeping in the recliner and not able to lift his leg into bed. Prior to TKR he was active and working a physical job. With the evaluation: his R knee passive ROM is (-15') to 50', he is very guarded; 2 minute walking test distance is 120' with wheeled walker; strength of R LE is less than 3/5--cannot perform supine SLR or SAQ, He does have quad activation but not enough to lift leg. Skilled PT services are indicated for modalities to decrease pain, therapeutic exercises to increase ROM and strength of R hip and knee, with education for HEP and gait progression. Plan of Care Interventions Electrical Stimulation,Hot Pack/Cold Pack,Manual Therapy,Neuro Re-education,Patient/Caregiver Education,Therapeutic Activities,Therapeutic Exercise,Ultrasound,Other Other Interventions taping PT Services Indicated Yes Treatment Frequency and 2x/wk for 5 weeks Duration These treatments will address the objective and functional deficits as defined
--- NOTE | 2023-03-11 15:31 | OPREHPOC ---
Outpatient Therapy Plan of Care This is a Multidisciplinary Plan of Care that may contain components documented by all disciplines (PT, OT, and ST.) PT Problem 1 PT Problem #1 Knowledge Deficit PT Goal 1 Goal 1* indep with HEP 2* correct use of assistive device with gait Progress Met Comment 03-11-23 progress met goals continue towards goals PT Problem 2 PT Problem #2 Pain PT Goal 1 Goal 1* pt report pain at worst of 5/10 Progress Met Comment 03-11-23 progress met goal NEW GOAL: 1* pain rating 3/10 at worst PT Problem 3 PT Problem #3 Impaired Flexibility PT Goal 1 Goal R knee active ROM in sittin* extension 0; 2* flexion 105' Progress Not Met Comment 03-11-23 progress goals not met continue towards goals PT Problem 4 PT Problem #4 Impaired Strength PT Goal 1 Goal 1* pt able to perform 20 reps of mat R LE exercises 2* sit/stand without use of UE x 3 reps from 18 seat 3* supine/sit transfer indep Progress Met Comment 03-11-23 progress met goals NEW GOALS: 1* supine mat exercise with 3# weight x 15 reps PT Problem 5 PT Problem #5 Impaired Functional Mobil PT Goal 1 Goal 1* 2 minute walking test distance of 300' with assistive device 2* up/down 8 steps with 1 hand railing, indep 3* pt report walking short distances in community Progress Not Met Comment 03-11-23 progress
--- NOTE | 2023-03-11 15:31 | PTOPPROG ---
Assessment and note entered by Abby Littlejonh, PT Evaluation Information Assessment Status Progress Diagnosis R TKR Onset 02-08-23 Subjective Information Santy reports knee is doing better; moving in/ out car and shower chair easier; been trying to walk more in the house and go to familys' home, not going out much; Assessment PT Clinical Summary Santy has received 7 PT sessions. Compared to the initial evaluation: pain decreased to 0-5/10; ROM of R knee with stretching is (-30') to 75'; 2 minute walking test distance with the wheeled walker is increased to 225'; on stairs required bilateral hand rail and single step pattern. The goals were partially met. Continue PT treatments. Plan of Care Interventions Electrical Stimulation,Gait Training,Hot Pack/Cold Pack,Intermittent Compression,Manual Therapy, Neuro Re-education,Patient/Caregiver Educati, Therapeutic Activities,Therapeutic Exercise, Ultrasound,Other Other Interventions taping PT Services Indicated Yes Treatment Frequency and 2x/wk for 4 weeks Duration These treatments will address the objective and functional deficits as defined above. The patient will be advanced safely and appropriately in order for the patient to progress towards his/her prior level of function. Additional exercises will be introduced and as well as a comprehensive home exercise program upon discharge, if needed, ?to ensure carryover of functional gains achieved in the clinic. This treatment plan has been reviewed and agreement upon by the patient.
--- NOTE | 2023-04-09 16:22 | OPREHPOC ---
Outpatient Therapy Plan of Care This is a Multidisciplinary Plan of Care that may contain components documented by all disciplines (PT, OT, and ST.) PT Problem 1 PT Problem #1 Knowledge Deficit PT Goal 1 Goal 1* indep with HEP 2* correct use of assistive device with gait Progress Met Comment 03-11-23 progress met goals continue towards goals PT Goal 2 Progress Met Comment 04-09-23 progress met goal continue to progress education PT Problem 2 PT Problem #2 Pain PT Goal 1 Goal 1* pt report pain at worst of 5/10 Progress Met Comment 03-11-23 progress met goal NEW GOAL: 1* pain rating 3/10 at worst PT Goal 2 Progress Not Met Comment 04-09-23 progress goal not met NEW GOAL 1* pain rating 4/10 at worst PT Problem 3 PT Problem #3 Impaired Flexibility PT Goal 1 Goal R knee active ROM in sittin* extension 0; 2* flexion 105' Progress Not Met Comment 03-11-23 progress goals not met continue towards goals PT Goal 2 Progress Not Met Comment 04-09-23 progress goals not met; NEW GOALS: 1* knee extension (-5') 2* knee flexion 100' PT Problem 4 PT Problem #4 Impaired Strength PT Goal 1 Goal 1* pt able to perform 20 reps of mat R LE exercises
--- NOTE | 2023-04-09 16:23 | PTOPPROG ---
Assessment and note entered by Abby Littlejohn, PT Evaluation Information Assessment Status Progress Diagnosis R TKR Onset 02-08-23 Subjective Information is doing better--stairs easier, starting to drive, worked 8 hours, able to sleep through the night OK; using the quad cane for walking, past 2 weeks ; have been doing all the exercises at home; Assessment PT Clinical Summary Santy has received a total of 15 PT sessions. Compared to the last reassessment: pain has increased at worst from 5 to 8/10, but he has increased his activity and returned to working 8 hours; sleeping improved- no longer awakening due to knee pain; strength increased R hip and knee; now walking with quad cane, instead of walker; 2 minute walking test distance increased from 225 to 285'; education on HEP. ROM of R knee: flexion active 80'/ passive 85'; extension active (-25')/ passive (-15') The goals were partially met. Continue PT treatment. Plan of Care Interventions Electrical Stimulation,Gait Training,Hot Pack/Cold Pack,Manual Therapy,Neuro Re-education, Therapeutic Activities,Therapeutic Exercise, Ultrasound,Other Other Interventions taping, [facility] PT Services Indicated Yes Treatment Frequency and 2x/wk for 8 visits Duration These treatments will address the objective and functional deficits as defined above. The patient will be advanced safely and appropriately in order for the patient to progress towards his/her prior level of function. Additional exercises will be introduced and as well as a comprehensive home exercise program upon discharge, if needed, ?to ensure carryover of functional gains achieved in the clinic. This treatment plan has been reviewed and agreement upon by the patient.
--- NOTE | 2023-04-29 12:54 | PCPTNOTE ---
Pt had to cancel due to work.
--- NOTE | 2023-05-06 14:34 | OPREHPOC ---
Outpatient Therapy Plan of Care This is a Multidisciplinary Plan of Care that may contain components documented by all disciplines (PT, OT, and ST.) PT Problem 1 PT Problem #1 Knowledge Deficit PT Goal 1 Goal 1* indep with HEP 2* correct use of assistive device with gait Progress Met Comment 03-11-23 progress met goals continue towards goals PT Goal 2 Progress Met Comment 04-09-23 progress met goal continue to progress education 05-06-23 progress met goal continue to progress education PT Problem 2 PT Problem #2 Pain PT Goal 1 Goal 1* pt report pain at worst of 5/10 Progress Met Comment 03-11-23 progress met goal NEW GOAL: 1* pain rating 3/10 at worst PT Goal 2 Progress Not Met Comment 04-09-23 progress goal not met NEW GOAL 1* pain rating 4/10 at worst 05-06-23 progress met goal NEW GOAL: 1* pain 3/10 at worst PT Problem 3 PT Problem #3 Impaired Flexibility PT Goal 1 Goal R knee active ROM in sittin* extension 0; 2* flexion 105' Progress Not Met Comment 03-11-23 progress goals not met continue towards goals PT Goal 2 Progress Not Met Comment
--- NOTE | 2023-05-06 14:34 | PTOPPROG ---
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 do it; working 8 hour days, start without cane, and by end of work day need the cane ; at work, was up/down small ladder about 30x- leg was really sore and tired that night; have been doing shopping and everything at home and work but heavy lifting; PAIN: range in the past week 0-4/10; tight over quad when wake up and then by lunch time, tight over knee also; increase after working and up/down small ladder at work; using ice over knee and heat over quad; taking aleve or tylenol for pain; able to sleep OK; have swelling and warmth in knee, more at the end of the day and up working; discussed wearing compression sleeve PRN for comfort; Assessment PT Clinical Summary Edouard has received 22 PT sessions. Compared to the last progress reports: pain decreased from 3-8/10 to 0-4/10; is no longer taking prescription pain meds; has returned to working, 8 hour days; walking without device or small base quad cane; 2 minute walking test distance increased to 420'; On stairs he is able to perform without the hand railing, ascending with alternating pattern and descending with single step pattern. Tenderness and pain over medial and lateral joint line. Due to pain in knee, his single leg standing on R leg is 3 seconds with 1 UE support. ROM of R knee with stretching: extension (-5') to 90'. He is using the knee CHAPARRITA for knee extension and flexion stretching. He continues to have edema over knee joint. The goals were partially met. Continue PT treatment---emphasis on decreasing edema and muscle tightness over knee and ROM of
--- NOTE | 2023-05-07 10:23 | PCPTNOTE ---
This treatment is being continued on visit number [id number]. Please see documentation on both accounts to view progress. Completed interventions, outcomes, and problems have been marked as Inactive to facilitate the copying of the Care plan routine for recurring accounts.
--- NOTE | 2023-06-08 13:15 | PCPTNOTE ---
PHYSICAL THERAPY DISCHARGE 06-08-23 Mr. Ramirez has not returned for additional therapy since the last progress report on 05-06-23. Refer to that report for his status at last session. Discharge PT services. The goals were not addressed.
== END 2023-05-07 08:44 | disposition home or self-care (01) ==
LOC: ANHPT 13:30
PROVIDERS: PCP Family Medicine; Visit Provider Orthopaedic Surgery
DX: Z47.1 Aftercare following joint replacement surgery (principal); Z96.651 Presence of right artificial knee joint
CPT/HCPCS: 97014; 97016; 97110; 97112; 97116; 97140; 97161; 97530; G0283

== ENCOUNTER 2024-01-12 16:16 | Outpatient (NON) | payer OTHER, SELFPAY ==
[2024-01-12 17:03] LABS: Source Synovial Fluid Rt Knee Syn Fluid
[2024-01-12 17:04] LABS: Appearance Synovial Fluid Hazy (Clear); Color Synovial Fluid Brown (Colorless); Lymphocytes Synovial Fluid 37 %; Macrophages Synovial Fluid 2 %; Monocytes Synovial Fluid 45 %; Neutrophils Synovial Fluid 13 % (0-25); Nucleated Cell Synovial Fluid 360 /uL (0-200); RBC Synovial Fluid 11000 /uL (0-0)
[2024-01-12 17:05] LABS: Other Cells Synovial Fluid 3 %
[2024-01-12 17:07] LABS: Crystals Synovial Fluid None Seen (None Seen)
== END 2024-01-12 16:17 | disposition home or self-care (01) ==
LOC: ANHLAB 16:17
PROVIDERS: PCP Family Medicine; Visit Provider Orthopaedic Surgery
DX: M25.561 Pain in right knee (principal); Z96.651 Presence of right artificial knee joint
CPT/HCPCS: 87070; 87075; 87205; 89051; 89060